=== PATIENT | female | born 1975 | race Caucasian/White ===

== ENCOUNTER → 2025-06-22 | Day surgery (SDC) | payer MEDICARE, OTHER ==
[2025-06-20 12:17] LABS: BASOPHILS % 0.3 % (0.0-1.0); EOSINOPHILS % 1.4 % (0.0-6.0); LYMPHOCYTES % 22.6 % (18.0-39.1); MONOCYTES % 9.4 % (4.4-11.3); NEUTROPHILS % 66.0 % (38.7-80.0); RED CELL DISTRIBUTION WIDTH 13.3 % (11.7-14.4)
[2025-06-20 12:37] LABS: EST GLOMERULAR FILTRATION RATE 97.0 ML/MIN (>=60)
[~2025-06-22] MED LIST: ACETAMINOPHEN 1000 MG/100 ML 100 ML IV ONE; FAMOTIDINE 20 MG/2 ML VIAL IV ONE; FENTANYL CITRATE/PF 100MCG/2 ML INJ ONE; FLOMAX0.4 MG PO; GLYCOPYRROLATE INJ 0.2 MG/ML VIAL ONE; KETAMINE HCL INJ 50 MG/ML 10 ML VIAL ONE; LIDOCAINE HCL 2% LOCAL INJ 5 ML SDV VIAL INJ ONE; MACROBID 100 M100 MG PO; MIDAZOLAM HCL 2 MG/2 ML VIAL ONE; NEOSTIGMINE 1 MG/ML 10ML VIAL ONE; PHENAZOPYRIDIN100 MG PO; PRENATAL VITAM1 EACH PO; PROPOFOL IV EMULSION 10 MG/ML 20 ML VIAL ONE; PROPOFOL IV EMULSION 50 ML IV ONE; ROCURONIUM BROMIDE 1 ML IV ONE; SUCCINYLCHOLINE CHLORIDE 20 MG/ML 10ML VIAL ONE; [UNRECOGNIZED DRUG - OTHER] PO
[2025-06-22] MEDS: Ampicillin INJ 1 GM Vial ONE (12:28)
[2025-06-22] MEDS: LACTATED RINGER'S 1,000 ML ONE (12:29)
[2025-06-22] MEDS: SCOPOLAMINE 1 MG PATCH ONE (12:29)
[2025-06-22] MEDS: GENTAMICIN 80MG/NS 100 ML 200 ML IV ONE (12:30)
[2025-06-22 12:57] VITALS: TEMP 97.6
[2025-06-22] MEDS: PHENAZOPYRIDINE HCL 100 MG TAB ONE (13:15)
[2025-06-22 15:25] VITALS: BP 138/88; PULSE 63; RESP 16; O2SAT 99
== END | disposition home or self-care (01) ==
LOC: OR 10:14
PROVIDERS: ATTEND Urology
DX: N30.10 Interstitial cystitis (chronic) without hematuria (principal); N39.41 Urge incontinence; N32.81 Overactive bladder; N32.89 Other specified disorders of bladder; R35.1 Nocturia; N81.10 Cystocele, unspecified; N81.6 Rectocele; N95.2 Postmenopausal atrophic vaginitis; E66.01 Morbid (severe) obesity due to excess calories; F81.89 Other developmental disorders of scholastic skills; F32.A Depression, unspecified; Z01.810 Encounter for preprocedural cardiovascular examination; Z01.812 Encounter for preprocedural laboratory examination; Z79.85 Long-term (current) use of injectable non-insulin antidiabetic drugs
CPT/HCPCS: 36415; 52260; 74420; 80048; 81025; 85025; 87086; 93005; C1758; J0131; J0330; J1308; J1580; J2003; J2250; J2704 ×2; J2710; J3010; J7121

== ENCOUNTER 2025-06-30 10:45 | Emergency (ER) | payer MEDICARE, OTHER ==
[~2025-06-30] VITALS: Ht 172.7 cm; Wt 117.9 kg
[~2025-06-30 10:45] MED LIST changes: -ACETAMINOPHEN 1000 MG/100 ML 100 ML IV ONE; -FAMOTIDINE 20 MG/2 ML VIAL IV ONE; -FENTANYL CITRATE/PF 100MCG/2 ML INJ ONE; -GLYCOPYRROLATE INJ 0.2 MG/ML VIAL ONE; -KETAMINE HCL INJ 50 MG/ML 10 ML VIAL ONE; -LIDOCAINE HCL 2% LOCAL INJ 5 ML SDV VIAL INJ ONE; -MIDAZOLAM HCL 2 MG/2 ML VIAL ONE; -NEOSTIGMINE 1 MG/ML 10ML VIAL ONE; -PROPOFOL IV EMULSION 10 MG/ML 20 ML VIAL ONE; -PROPOFOL IV EMULSION 50 ML IV ONE; -ROCURONIUM BROMIDE 1 ML IV ONE; -SUCCINYLCHOLINE CHLORIDE 20 MG/ML 10ML VIAL ONE
[2025-06-30 10:55] VITALS: TEMP 98.5
[2025-06-30 11:43] LABS: LEUKOCYTE ESTERASE ,URINE NEGATIVE (NEGATIVE)
[2025-06-30 11:44] LABS: PROTEIN,URINE DIPSTICK NEGATIVE (NEGATIVE); URINE UROBILINOGEN 0.2 mg/dL (0.2 - 1)
[2025-06-30 11:55] LABS: EPITHELIAL CELLS,URINE MANY /LPF
[2025-06-30 12:40] VITALS: PULSE 74; RESP 18; O2SAT 100
== END 2025-06-30 12:40 | disposition home or self-care (01) ==
LOC: ER 10:52
DX: R32 Unspecified urinary incontinence (principal); F81.9 Developmental disorder of scholastic skills, unspecified; Z96.653 Presence of artificial knee joint, bilateral
CPT/HCPCS: 81001; 87086; 99282